=== PATIENT | female | born 1990 | race Caucasian/White ===

== ENCOUNTER → 2019-12-11 | Outpatient (CLI) | payer OTHER, SELFPAY ==
[2019-12-11 15:27] VITALS: BMI 33.9
[2019-12-13 15:54] LABS: HPV Reflexed? NOT INDICATED
== END | disposition home or self-care (01) ==
LOC: LABSPEC 16:48
PROVIDERS: PCP Family Medicine; Referring Provider Obstetrics & Gynecology; Visit Provider Obstetrics & Gynecology
DX: Z12.4 Encounter for screening for malignant neoplasm of cervix (principal)
CPT/HCPCS: 88175; G0145

== ENCOUNTER → 2020-12-23 | Outpatient (CLI) | payer OTHER, SELFPAY ==
[2020-12-23 13:40] VITALS: BMI 33.9
[2020-12-26 00:11] LABS: Chlamydia By Nucleic Acid AMP Negative (Negative)
[2020-12-26 10:01] LABS: Gonococcus By Nucleic Acid AMP Negative (Negative)
== END | disposition home or self-care (01) ==
LOC: LABSPEC 15:54
PROVIDERS: PCP Family Medicine; Referring Provider Nurse Practitioner Women's Health; Visit Provider Nurse Practitioner Women's Health
DX: N76.0 Acute vaginitis (principal); Z11.3 Encounter for screening for infections with a predominantly sexual mode of transmission
CPT/HCPCS: 87070; 87205; 87491; 87591

== ENCOUNTER → 2022-11-23 | Outpatient (CLI) | payer BC, SELFPAY ==
[2022-12-01 11:09] LABS: HPV APTIMA, High Risk Positive (Negative)
== END | disposition home or self-care (01) ==
LOC: LABSPEC 12:01
PROVIDERS: PCP Family Medicine; Referring Provider Nurse Practitioner Women's Health; Visit Provider Nurse Practitioner Women's Health
DX: Z12.4 Encounter for screening for malignant neoplasm of cervix (principal)
CPT/HCPCS: 87624; 88175; G0145

== ENCOUNTER → 2022-12-16 | Outpatient (CLI) | payer BC, SELFPAY ==
--- NOTE | 2022-12-15 | IMM_PTH ---
PATIENT: JUN CHERY LOC: [facility] U#:[id number] AGE/SX: 32/F ROOM: RE12/16/[address]: Dr. Karena Castillo DO : 1990 BED: DIS: 12/16/2022 SPEC #: [id number] RECD: 12/19/22 12:40 STATUS: RADHA VICTORIA #: [id number] [place]: 12/15/22 00:[address]: Karena Castillo DEPT: IMMUNOHISTOCHEMISTRY RECD BY: Nikia Winters ENTERED: 12/19/22 12:41 SP TYPE: IMMUNO OTHR DR: Dr. Cindy Mars MD Tissues: A - Uterine cervix, NOS Procedures: p16 (initial) KI-67 (add) PHYSICIAN & INSTITUTION [place] [id number] SPECIMEN INFORMATION: Tissue Source: A ? Cervix, 11 o?clock Clinical Info: IGOR, HPV+ Specimen Number: [id number] CPT code: 35893, 62639 METHODOLOGY: Deparaffinized sections of prefer/formalin-fixed tissue or PAP/DQ stained slides are incubated with monoclonal/polyclonal antibodies/oligonucleotide probes. Localization is made via biotin free immunoperoxidase method. Appropriate controls are performed and reacted as expected. Results on target cell population are indicated in the following table: RESULTS: ANTIBODY / CLONE RESULT Block A P16 (E6H4) positive, block staining Ki-67 (30-9) positive, moderate These tests were developed and their performance characteristics determined by [facility]. They may not have been cleared or approved by the U.S. Food and Drug Administration. The FDA has determined that such clearance or approval is not necessary. The above immunohistochemical/dualISH markers are ordered and reviewed by the Pathologist. INTERPRETATION: Amie Cervix, 11 o?clock, biopsy: Focal moderate squamous dysplasia. SJ:miguel ángel 12/20/2022
--- NOTE | 2022-12-15 | CER_PTH ---
PATIENT: JUN CHERY LOC: [facility]#:[id number] AGE/SX: 32/F ROOM: RE12/16/[address]: Dr. Karena Castillo DO : 1990 BED: DIS: 12/16/2022 SPEC #: [id number] RECD: 12/15/22 15:47 STATUS: RADHA HAYNESAriella #: [id number] [place]: 12/15/22 00:[address]: Karena Castillo DEPT: SURGICAL PATHOLOGY RECD BY: Abrahan Taylor ENTERED: 12/16/22 10:11 SP TYPE: CERV OTHR DR: Dr. Cindy Mars MD Tissues: A - Uterine cervix, NOS B - Endocervical Procedures: Surgery Specimen Level IV HEADER OPERATION: Colposcopy PRE-OP DIAGNOSIS: LGSIL, HPV+ TISSUE SUBMITTED: A ? 11 o?clock, B ? Endocervical curettings MICROSCOPIC DIAGNOSIS A. 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 Moderate to marked chronic inflammation and mild acute inflammation. See comment. B. Endocervical curettings: Scant fragments of benign ecto- and endocervical epithelium and mucous, negative for dysplasia. SJ:rg 12/19/2022 COMMENT A. Immunohistochemistry ([id number]) for surrogate HPV marker (p16) supports the above diagnosis. MICROSCOPIC DESCRIPTION Slides are reviewed. GROSS DESCRIPTION A - Received in fixative is one container labeled with the patient's name and designated 11 o'clock. The specimen consists of one irregular fragment of light brito soft tissue that measures 0.4 x 0.3 x 0.1 cm. The specimen is totally submitted in one cassette. B - Received is a metallic endoscopic cytobrush with adherent minute fragments of brito-red tissue brush in 2 ml of clear red fluid and labeled with the patient's name and and designated per the requisition as ECC. The material is dislodged from the brush and submitted for cytology preparation including cell block. / WALLY:miguel ángel 12/16/2022 TC:5 CPT: 09968 x2
== END | disposition home or self-care (01) ==
LOC: LABSPEC 10:07
PROVIDERS: PCP Family Medicine; Referring Provider Obstetrics & Gynecology; Visit Provider Obstetrics & Gynecology
DX: R87.613 High grade squamous intraepithelial lesion on cytologic smear of cervix (HGSIL) (principal); R87.810 Cervical high risk human papillomavirus (HPV) DNA test positive; N72 Inflammatory disease of cervix uteri
CPT/HCPCS: 88305; 88341; 88342

== ENCOUNTER 2023-01-11 09:54 | Day surgery (SDC) | payer BC, SELFPAY ==
--- NOTE | 2023-01-11 | IMM_PTH ---
PATIENT: JUN CHERY [place] [facility] [place][id number] AGE/SX: 32/F ROOM: RE01/11/[address]: Dr. Karena Castillo DO : 1990 BED: DIS: 01/11/2023 SPEC #: [id number] RECD: 01/13/23 13:30 STATUS: RADHA REAriella #: [id number] [place]: 01/11/23 00:[address]: Karena Castillo DEPT: IMMUNOHISTOCHEMISTRY RECD BY: Nikia Winters ENTERED: 01/13/23 13:32 SP TYPE: IMMUNO OTHR DR: Dr. Josiah Garcia MD [facility] Tissues: A - UTERINE CERVIX LEEP Procedures: p16 (initial) KI-67 (add) P16 (add) PHYSICIAN & INSTITUTION [place] [address] SPECIMEN INFORMATION: Tissue Source: A - Cervix Clinical Info: MARY, HPV positive, LGSIL Specimen Number: [id number] A1-A3 CPT code: 12584, 77328 x5 METHODOLOGY: Deparaffinized sections of prefer/formalin-fixed tissue or PAP/DQ stained slides are incubated with monoclonal/polyclonal antibodies/oligonucleotide probes. Localization is made via biotin free immunoperoxidase method. Appropriate controls are performed and reacted as expected. Results on target cell population are indicated in the following table: RESULTS: ANTIBODY / CLONE RESULT Block A1 P16 (E6H4) positive, block-like Ki-67 (30-9) positive, moderate Block A2 P16 (E6H4) positive, rare Ki-67 (30-9) positive, low Block A3 P16 (E6H4) positive, rare Ki-67 (30-9) positive, low These tests were developed and their performance characteristics determined by [facility]. They may not have been cleared or approved by the U.S. Food and Drug Administration. The FDA has determined that such clearance or approval is not necessary. The above immunohistochemical/dualISH markers are ordered and reviewed by the Pathologist. INTERPRETATION: A. Cervix, LEEP conization: Consistent with mild to moderate squamous dysplasia, MARY I-II (HSIL). AM:miguel ángel 01/16/2023 Case has been reviewed in consultation with Dr. Bertrand who concurs with the above diagnosis. IDC:SJ
--- NOTE | 2023-01-11 | CER_PTH ---
PATIENT: JUN CHERY [place] [facility] [place][id number] AGE/SX: 32/F ROOM: RE01/11/[address]: Dr. Karena Castillo DO : 1990 BED: DIS: 01/11/2023 SPEC #: [id number] RECD: 01/11/23 14:17 STATUS: RADHA KESSLER #: [id number] [place]: 01/11/23 00:[address]: Karena Castillo DEPT: SURGICAL PATHOLOGY RECD BY: Abrahan Taylor ENTERED: 01/12/23 08:58 SP TYPE: CERV OTHR DR: Dr. Josiah Garcia MD [facility] Tissues: A - Uterine cervix, NOS B - Endocervical Procedures: Surgery Specimen Level IV HEADER OPERATION: LEEP cone, cervical biopsy PRE-OP DIAGNOSIS: MARY II, HPV positive, LGSIL TISSUE SUBMITTED: A - Cervical LEEP, B - Endocervical curettage MICROSCOPIC DIAGNOSIS A. Cervix, LEEP conization: Mild to moderate squamous dysplasia, MARY I-II (HSIL). Squamous metaplasia and chronic inflammation. Margins of excision are free of dysplasia. See comment. B. Endocervix, curettings: Scant strips of benign superficial endocervix. Detached fragments of squamous epithelial cells. No evidence of dysplasia. AM:miguel ángel 01/13/2023 COMMENT A. Results from immunohistochemistry ([id number]) for surrogate HPV marker (p16) will be reported separately. Case has been reviewed in consultation with Dr. Bertrand who concurs with the above diagnosis. IDC:SJ MICROSCOPIC DESCRIPTION Slides are reviewed. GROSS DESCRIPTION A - Received in fixative is one container labeled with the patient's name and designated cervical biopsy. The specimen consists of multiple irregular fragments of brito tissue ranging in size from 1.0 to 1.5 cm and consistent with conization. No gross lesions are identified. The fragments are inked, sectioned and totally submitted in four cassettes. B - Received in fixative is one container labeled with the patient's name and designated endocervical curetting. The specimen consists of multiple irregular fragments of light to dark brito soft tissue that in aggregate measure 1.0 x 0.2 x <0.1 cm. The specimen is totally submitted in one cassette. / AM:miguel ángel 01/12/2023 TC:1 CPT: 63648 x2
[2023-01-11 10:35] VITALS: BP 136/87; PULSE 97; RESP 18; TEMP 36.6; O2SAT 98; BMI 40.2
[2023-01-11 10:37] LABS: Hematocrit 42.5 % (37-47); Hemoglobin 14.4 g/dL (12.0-15.0); Mean Corp Hgb Conc 33.9 g/dL (32-36); Mean Corpuscular Hgb 30.4 pg (27.0-32.0); Mean Corpuscular Volume 89.7 fL (81-99); Mean Platelet Vol. 9.9 fl (6.2-12.0); Platelet Count 350 K/mm3 (150-450); RBC Distribution Width CV 12.7 % (11.6-14.6); RBC Distribution Width SD 41.8 fl (35.1-43.9); Red Blood Count 4.74 M/mm3 (4.2-5.4); White Blood Count 6.9 K/mm3 (4.4-11.0)
[2023-01-11] MEDS: Lactated Ringers 1,000 ML 15 ML IV (10:39)
[2023-01-11 10:45] LABS: Internal QC Validated? YES +Cl - CLEAR BKGD; Pregnancy, Urine Negative Negative
--- NOTE | 2023-01-11 12:25 | PCM.HP.BLA ---
History and Physical Date of Admission: 01/11/23 Intake Vital Signs 01/03/2310:25 01/03/2310:33 Height 5 ft 3 in 5 ft 3 in Weight: 228 lb 6 oz BMI 40.4 BP 134/86 H Intake Visit Reasons: LEEP Pre op Supervisor [facility] Required: No Is patient in pain?: No Allergies No Known Allergies Allergy (Verified 01/03/23 10:32) Medications levonorgestrel 20.4 mcg/24 hrs (8 yrs) 52 mg intrauterine device (Liletta) 1 device intrauterine ONCE 12/23/20 [History Confirmed 01/03/23] escitalopram oxalate 10 mg tablet (Lexapro) 10 mg PO DAILY 11/17/21 [History Confirmed 01/03/23] pantoprazole 20 mg tablet,delayed release (Protonix) 20 mg PO DAILY 11/17/21 [History Confirmed 01/03/23] Post menopausal: No Patient : No : No PFSH Medical History Anxiety Heartburn HPV test positive Low grade squamous intraepithelial lesion (LGSIL) Surgical History S/P wisdom tooth extraction Family History Grandmother DiabetesMother Skin cancer Social History Smoking Status: Never smoker alcohol intake: current details: occasionally substance use type: does not use caffeine: No what type of physical activity do you participate in: bicycling and aerobics frequency: 1-2 times per week seatbelt use: always do you feel safe at home: Yes additional social history: Single-Works at [employer] HPI LEEP Pre op Details: JUN CHERY is a 32 year old who presents for pre-op LEEP exam. She had moderate to high grade dysplasia on her colposcpy. History 0 Elective abortions Hx Para Spontaneous abortions Hx # Term Pregnancies Ectopic pregnancies Hx # Pregnancies Multiple births # of living children ROS Const ROS Unobtainable: All systems reviewed & are unremarkable except as noted in H Resp Resp: Reports system reviewed and no additional complaints, except as documented; Denies cough GI GI: Reports as per HPI Psych Psych: Reports system reviewed and no additional complaints, except as documented Exam Const General: cooperative, healthy appearing, comfortable and no acute distress Resp Effort & Inspection: normal respiratory effort Skin General: no rashes or lesions noted Psych Appearance: grossly normal Speech and Movement: speech and movement normal Coding Level of Care Code Off vis,est,level 4 Diagnoses MARY II (cervical intraepithelial neoplasia II) N87.1 HPV test positive Low grade squamous intraepithelial lesion (LGSIL) Assessment and Plan Assessment and Plan (1) MARY II (cervical intraepithelial neoplasia II): Status: Acute Comment: LEEP (2) HPV test positive: Status: Acute Comment: Colposcopy (3) Low grade squamous intraepithelial lesion (LGSIL): Status: Acute Plan: After discussing the patient's diagnosis and treatment plan options, patient wishes to proceed with surgical management. I have discussed with the patient the risks, benefits, and alternatives of the procedure which include but are not limited to risks of anesthesia, bleeding, infection, possible damage to bowel, bladder, or surrounding vasculature which could lead to additional surgery to evaluate any complications. Patient agrees to procedure and wishes to proceed. ACOG/uptodate references given for additional information regarding procedure. plan for mac anesthesia or per the anesthesiologist and LEEP procedure 01/11/2023
--- NOTE | 2023-01-11 12:26 | PCM.DC ---
Discharge Instructions Diet Discharge Diet: No restrictions Activity Discharge Activity: Return to Normal Activity and [place] [address] (while taking narcotic pain mediations.) May resume sexual activity in: 4 weeks (Nothing in the vagina for 4 weeks.) Dressing / Incision Call your doctor if you observe: Fever of 101 or Higher and Using more than 1 pad per hour Follow Up Care Please Follow Up With: Karena Castillo DO When: Call [phone] for follow-up appointment. Test Results: Test results from this visit will be discussed in further detail at your follow-up appointment, if applicable. Discharge Plan Admission Primary Reason for Your Visit: LEEP Attending Provider: Karena Castillo [facility] Providers: Josiah Garcia Discharge Orders/Prescriptions Prescriptions: New ibuprofen 800 mg tablet 800 mg PO Q8H PRN (Reason: pain) Qty: 20 0RF Continued Liletta 20.1 mcg/24 hrs (6 yrs) 52 mg intrauterine device 1 device intrauterine ONCE Rx Instructions: as a single dose escitalopram oxalate [Lexapro] 10 mg tablet 10 mg PO DAILY pantoprazole [Protonix] 20 mg tablet,delayed release (DR/EC) 20 mg PO DAILY loratadine [Claritin] 10 mg Tablet 10 mg PO DAILY PRN (Reason: ALLERGIES) Xiidra 5 % dropperette 1 drp EACH EYE BID Patient Comments: 1 drop into both eyes twice a day Ref[facility] - Disposition Disposition (needs filled in before D/C Order can be placed): Home, Self Care
--- NOTE | 2023-01-11 12:30 | PCM.OPRPT ---
Report of Operation Date of Procedure: 01/11/23 Pre-Operative Diagnosis: HGSIL on cervical biopsy Post-Operative Diagnosis: HGSIL on cervical biopsy Surgery/Procedure Performed:: LEEP Surgeon: Karena Castillo rope coiling machine operator: None Type of Anesthesia: MAC Estimated Blood Loss (mL): 10cc Description of Procedure: Patient was taken to the operating room and placed under MAC anesthesia prepped and draped in normal sterile fashion the dorsal lithotomy position. Paracervical block was placed with 1% lidocaine and using a loop electrode the outer part of the cervix was removed including the squamocolumnar junction. Endocervical curettings were taken and the base of the cervix was cauterized around the borders and the base to obtain excellent hemostasis. Monsel's paste was placed and patient was awoken and taken recovery in stable condition. Complications none Admit VTE Documentation VTE Mechan Device Prophylaxis: SCD's Multi Select Codes Urinary/Genital Urinary/Genital CPT Codes: 31150 LEEP
[2023-01-11] MEDS: Lidocaine 1% (30 ml sdv) 30 ML Vial (12:44)
[2023-01-11] MEDS: FERRIC SUBSULFATE 8 GM SOLN (12:50)
[2023-01-11] MEDS: Iodine/Potassium Iodide 14ML Bottle 1 DRP TOPICAL (13:02)
[2023-01-11 13:08] VITALS: BP 107/69; BP 136/87; PULSE 70; RESP 16; TEMP 36.7; O2SAT 96
[2023-01-11 13:10] VITALS: BP 114/73; BP 136/87; PULSE 76; RESP 16; O2SAT 94
[2023-01-11 13:15] VITALS: BP 110/70; BP 136/87; PULSE 70; RESP 16; O2SAT 94
[2023-01-11 13:20] VITALS: BP 112/81; BP 136/87; PULSE 69; RESP 16; TEMP 36.3; O2SAT 97
[2023-01-11 13:45] VITALS: BP 136/87
== END 2023-01-11 13:56 | disposition home or self-care (01) ==
LOC: SDC 10:01 → AC 10:02
PROVIDERS: Referring Provider Obstetrics & Gynecology; Visit Provider Obstetrics & Gynecology
PROC: 0UBC7ZZ Excision of Cervix, Via Natural or Artificial Opening (ICD-10-PCS; CPT 57522; principal; 2023-01-11 11:45)
DX: N87.1 Moderate cervical dysplasia (principal); F41.9 Anxiety disorder, unspecified; Z79.899 Other long term (current) drug therapy
CPT/HCPCS: 57522; 00940; 81025; 85027; 86850; 86900; 86901; 88305; 88341; 88342; J7120; J2405

== ENCOUNTER → 2023-07-04 | Outpatient (CLI) | payer BC, SELFPAY ==
[2023-07-06 21:07] LABS: Chlamydia By Nucleic Acid AMP Negative (Negative); Gonococcus By Nucleic Acid AMP Negative (Negative)
[2023-07-07 15:08] LABS: HPV APTIMA, High Risk Negative (Negative)
== END | disposition home or self-care (01) ==
PROVIDERS: Visit Provider Nurse Practitioner Women's Health
DX: Z12.4 Encounter for screening for malignant neoplasm of cervix (principal); Z11.3 Encounter for screening for infections with a predominantly sexual mode of transmission
CPT/HCPCS: 87491; 87591; 87624; 88175; G0145

== ENCOUNTER → 2023-11-14 | Outpatient (CLI) | payer BC, SELFPAY ==
[2023-11-14 09:56] LABS: Absolute Lymphocyte Count 1.91 X10^3/uL (0.83-4.51); Absolute Neutrophil Count 4.4 X10^3/uL (2.0-7.7); Basophil# 0.07 X10^3/uL; Eosinophil# 0.13 X10^3/uL; Eosinophils% 1.8 % (0-5); Hematocrit 44.1 % (37-47); Hemoglobin 14.4 g/dL (12.0-15.0); Lymphocyte # 1.91 X10^3/ul (0.83-4.51); Lymphocyte % 27.2 % (19-41); Mean Corp Hgb Conc 32.7 g/dL (32-36); Mean Corpuscular Hgb 29.3 pg (27.0-32.0); Mean Corpuscular Volume 89.8 fL (81-99); Mean Platelet Vol. 10.6 fl (6.2-12.0); Monocyte# 0.54 X10^3/uL; Monocyte% 7.7 % (0-10); NRBC Flagged by Analyzer 0 % (0-5); Neutrophil # 4.35 X10^3/uL (2.7-7.7); Neutrophil % 61.9 % (47-70); Platelet Count 367 K/mm3 (150-450); RBC Distribution Width CV 12.8 % (11.6-14.6); RBC Distribution Width SD 42.2 fl (35.1-43.9); Red Blood Count 4.91 M/mm3 (4.2-5.4)
[2023-11-14 10:41] LABS: Vitamin B12 220 pg/mL (211-911); Vitamin D,25 Hydroxy 6.4 ng/mL
[2023-11-14 10:51] LABS: ALB/GLOB Ratio 1.1 RATIO (0.9-2.4); AST(SGOT) 14 U/L (15-37); Alanine Aminotransfer ALT/SGPT 16 U/L (13-56); Albumin, Serum 3.8 g/dL (3.2-5.0); Alkaline Phosphatase 86 U/L (45-117); Anion Gap 6 (5-15); BUN 9 mg/dL (7-18); BUN/Creat Ratio 8.3 RATIO (10-20); Chloride 109 mmol/L (98-107); Cholesterol 175 mg/dL (200); Creatinine, Serum 1.08 mg/dL (0.55-1.02); EST Glomerular Filtration Rate 63 mL/min (>60); Est Glom Filt Rate - Afr Amer 76 mL/min (>60); Globulin 3.5 g/dL (2.2-4.2); Glucose 108 mg/dL (74-106); High Density Lipoprotein 42 mg/dL; Potassium 3.5 mmol/L (3.5-5.1); Protein, Total 7.3 g/dL (6.4-8.2); Sodium Level 140 mmol/L (136-145); Triglycerides 144 mg/dL; Very Low Density Lipoprotein 29 mg/dL (5-40)
== END | disposition home or self-care (01) ==
LOC: MTLAB 09:12
PROVIDERS: Referring Provider Nurse Practitioner Family; Visit Provider Nurse Practitioner Family
DX: F41.1 Generalized anxiety disorder (principal); K21.9 Gastro-esophageal reflux disease without esophagitis; E56.9 Vitamin deficiency, unspecified
CPT/HCPCS: 36415; 80053; 80061; 82306; 82607; 84443; 85025

== ENCOUNTER → 2024-01-16 | Outpatient (CLI) | payer MEDICAID, SELFPAY ==
[2024-01-19 16:09] LABS: HPV APTIMA, High Risk Negative (Negative)
== END | disposition home or self-care (01) ==
LOC: LABSPEC 10:46
PROVIDERS: Referring Provider Nurse Practitioner Women's Health; Visit Provider Nurse Practitioner Women's Health
DX: N87.1 Moderate cervical dysplasia (principal); Z12.4 Encounter for screening for malignant neoplasm of cervix
CPT/HCPCS: 87624; 88175; G0145